=== PATIENT | female | born 1950 | race Caucasian/White ===

== ENCOUNTER → 2021-06-17 09:44 | Outpatient (CLI) | payer MEDICARE, BC, SELFPAY ==
--- NOTE | 2021-06-17 09:48 | MM_ITS ---
PROCEDURE INFORMATION: Exam: MG Screening 3D Mammography Exam date and time: 06/17/2021 9:48 AM Age: 71 years old Clinical indication: Encounter for screening mammogram for malignant neoplasm of breast TECHNIQUE: Imaging protocol: Screening tomosynthesis and 2D mammography including computer-aided detection (CAD) when performed. COMPARISON: No relevant prior studies available. FINDINGS: MAMMOGRAPHY: Breast composition: There are scattered areas of fibroglandular density. Mass: No new suspicious masses. Architectural distortion: No suspicious distortion. Calcifications: No suspicious calcifications. Asymmetric density: None. Skin thickening: None. Axillary adenopathy: None. IMPRESSION: No mammographic evidence of malignancy. Annual screening is recommended unless otherwise clinically indicated. ASSESSMENT: BI-RADS Category 1: Negative
== END ==
PROVIDERS: PCP Family Medicine; Visit Provider Family Medicine
DX: Z12.31 Encounter for screening mammogram for malignant neoplasm of breast (principal)
CPT/HCPCS: 77063; 77067

== ENCOUNTER 2022-06-28 21:55 | Emergency (ER) | payer MEDICARE, BC, SELFPAY ==
[2022-06-28 21:56] VITALS: BP 178/70; PULSE 64; RESP 16; TEMP 36.8; O2SAT 99; BMI 29.7
[2022-06-28 23:58] LABS: Microscopic, Urine URINE MICROSCOPIC (MICROSCOPIC)
[2022-06-28 23:59] LABS: Appearance,Urine CLEAR (Clear); Bilirubin,Urine Negative (Negative); Blood, Urine 3+ (Negative); Color,Urine YELLOW (Yellow); Glucose,Urine (UA) Negative (Negative); Ketones,Urine Negative (Negative); Leukocyte Esterase,Urine TRACE (Negative); Nitrate,Urine Negative (Negative); Protein,Urine Negative (Negative); Specific Gravity, Urine <= 1.005 (1.005-1.030); Urobilinogen,Urine 0.2 EU/dl (0.2)
[2022-06-29 00:02] LABS: Bacteria,Urine Trace /lpf
--- NOTE | 2022-06-29 00:02 | CT_ITS ---
PROCEDURE INFORMATION: Exam: CT Abdomen And Pelvis With Contrast Exam date and time: 06/29/2022 12:18 AM Age: 72 years old Clinical indication: Other: Severe vaginal bleeding TECHNIQUE: Imaging protocol: Computed tomography of the abdomen and pelvis with contrast. Radiation optimization: All CT scans at this facility use at least one of these dose optimization techniques: automated exposure control; mA and/or kV adjustment per patient size (includes targeted exams where dose is matched to clinical indication); or iterative reconstruction. Contrast material: ISOVUE; Contrast volume: 75 ml; Contrast route: IV; COMPARISON: No relevant prior studies available. FINDINGS: Diaphragm: Small hiatal hernia. Liver: Normal. No mass. Gallbladder and bile ducts: Normal. No calcified stones. No ductal dilation. Pancreas: Normal. No ductal dilation. Spleen: Normal. No splenomegaly. Adrenal glands: Normal. No mass. Kidneys and ureters: Normal. No hydronephrosis. Stomach and bowel: Unremarkable. No obstruction. No mucosal thickening. Appendix: No evidence of appendicitis. Intraperitoneal space: Unremarkable. No free air. No significant fluid collection. Vasculature: Unremarkable. No abdominal aortic aneurysm. Lymph nodes: Unremarkable. No enlarged lymph nodes. Urinary bladder: Unremarkable as visualized. Reproductive: There is fluid in the endometrial canal. There is enhancement of the endometrial lining. No fibroids are seen. Bones/joints: Unremarkable. No acute fracture. Soft tissues: Unremarkable. IMPRESSION: Fluid in the endometrial canal with enhancement of the endometrial lining. These findings could indicate malignancy. Recommend endometrial biopsy.
[2022-06-29 00:12] LABS: Basophils # 0.1 K/mm3 (0-0.2); Basophils % 0.7 % (0.1-2.0); Eosinophils # 0.1 K/mm3 (0.0-0.4); Eosinophils % 1.1 % (0.1-12.0); Hematocrit 45.3 % (37.0-47.0); Hemoglobin 14.4 g/dL (12.2-16.2); Lymphocytes # 1.9 K/mm3 (0.7-4.5); Lymphocytes % 29.5 % (10-50); Mean Corpuscular HGB Conc 31.8 g/dL (31.8-35.4); Mean Corpuscular Hemoglobin 30.7 pg (27.0-31.2); Mean Corpuscular Volume 96.7 fl (81-99); Mean Platelet Volume 11.4 fl (7.4-10.4); Monocytes # 0.4 K/mm3 (0.1-1.0); Monocytes % 6.2 % (1.7-9.3); Neutrophils # 4.1 K/mm3 (1.8-7.8); Neutrophils % 62.5 % (37.0-80.0); Platelet Count 219 K/mm3 (142-424); Red Blood Count 4.68 M/mm3 (4.20-5.40); Red Cell Distribution Width 13.4 % (11.5-17.5); White Blood Count 6.6 K/mm3 (4.8-10.8)
[2022-06-29 00:17] LABS: Anion Gap 13.2 mEq/L (5-15); Blood Urea Nitrogen 13 mg/dl (7-17); Calcium 9.9 mg/dl (8.4-10.2); Carbon Dioxide 29 mmol/L (22.0-30.0); Chloride 104 mmol/L (98-107); Creatinine Clearance Estimated 63 mL/min (50-200); Estimated Glomerular Filt Rate 71 ml/min (>60); GFR (African American) 86 ML/MIN (>60); Glucose 120 mg/dl (74-100); Potassium 4.2 mmoL/L (3.5-5.1); Sodium 142 mmol/L (136-145)
--- NOTE | 2022-06-29 00:26 | PC.NURSE ---
Pt gone to RAD
--- NOTE | 2022-06-29 00:38 | PC.NURSE ---
Pt back from RAD
--- NOTE | 2022-06-29 00:44 | PC.NURSE ---
Pt updated on POC. No needs voiced at this time.
--- NOTE | 2022-06-29 01:56 | HMH.EDUROGF ---
ED Disposition Clinical Impression: Dysfunctional uterine bleeding Disposition: Home, Self-Care Condition on Discharge: Good Instructions: DI for Vaginal Bleeding Additional Instructions: call outdoor studies director in am Referrals: Carmelo Hammond MD [Primary Care Provider] - Arya Hsieh MD [Staff Physician] - Suha Hurt DO [Physician] - Madhavi Meade MD [Staff Physician] - - Critical Care Critical Care Time: No Attestation: On 06/28/22, the high probability of a clinically significant, sudden or life threatening deterioration of the following system(s) required my full and direct attention, intervention and personal management. The time I documented below is in addition to time spent performing reported procedures but includes the following listed in this critical care notation. Medical Decision Making - Medical Records Medical records reviewed: Yes: I reviewed the patient's medical records. - Kehinde Inquiry Pt receiving controlled substance: No Vital Signs: 06/28/22 21:56 Temperature 98.2 F Temperature Source Oral Pulse Rate [Left] 64 Respiratory Rate 16 Blood Pressure [Right Arm] 178/70 H Blood Pressure Mean [Right Arm] 106 02 Sat by Pulse Oximetry 99 Oxygen Delivery Method Room Air - Lab Data Lab results reviewed: Yes: I reviewed the patient's lab results. Lab Results 06/28/22 23:15: Urine Color Yellow, Urine Appearance Clear, Urine pH 6.0, Ur Specific [place] <= 1.005, Urine Protein Negative, Urine Glucose (UA) Negative, Urine Ketones Negative, Urine Blood 3+, Urine Nitrate Negative, Urine Bilirubin Negative, Urine Urobilinogen 0.2, Ur Leukocyte Esterase Trace, Urine RBC 10-20, Urine WBC 3-5, Ur Squamous Epith Cells 3-5, Urine Bacteria Trace 06/28/22 23:30: WBC 6.6, RBC 4.68, Hgb 14.4, Hct 45.3, MCV 96.7, MCH 30.7, MCHC 31.8, RDW 13.4, Plt Count 219, MPV 11.4 H, Neut % (Auto) 62.5, Lymph % (Auto) 29.5, [place] % (Auto) 6.2, Eos % (Auto) 1.1, Baso % (Auto) 0.7, Neut # (Auto) 4.1, Lymph # (Auto) 1.9, [place] # (Auto) 0.4, Eos # (Auto) 0.1, Baso # (Auto) 0.1 06/28/22 23:30: Sodium 142, Potassium 4.2, Chloride 104, Carbon Dioxide 29, Anion Gap 13.2, BUN 13, Creatinine 0.80, Estimated Creat Clear 63, Estimated GFR 71, Est GFR ( Amer) 86, Glucose 120 H, Calcium 9.9 Result diagrams: 06/28/22 23:30 06/28/22 23:30 Orders (Tests/Meds): ED MEDICATIONS Discontinued Medications Generic Name Dose Route Start Last Admin Trade Name Branden PRN Reason Stop Dose Admin Iopamidol 75 ml 06/29/22 00:36 06/29/22 00:37 Iopamidol-370 (76%);100ml Bottle IV 06/29/22 00:37 75 ml ONCE ONE Administration Sodium Chloride 10 ml 06/29/22 00:36 06/29/22 00:37 Sodium Chloride 0.9% 10ml Syr (Rad Only) IV 06/29/22 00:37 10 ml ONCE ONE Administration - CT Data CT Scan: Abdomen, Pelvis Time Received: 01:[address] Reviewed: Yes: I have viewed the radiologist's interpretation Preliminary Findings: Abnormal Medical Decision Narrative: stable exam and will refer to outdoor studies director Female Urogenital HPI - General Chief complaint: Vaginal Bleeding Stated complaint: vag bleeding Time Seen by Provider: 06/29/22 01:56 Mode of Arrival: Ambulatory Source of Information: Patient, Spouse, Medical Record Limitations: No Limitations Description of Symptoms (Recalled from ER Triage Doc. by RN): pt reports that at 8pm she was at [employer] and stood up and had a [place] of blood she was passing small clots and she hasnt had any bleeding in 20 years pt stated she does have a uterus. there was cramping but no trauma or hx of bleeding - History of Present Illness HPI Narrative: crampy lower abd pain with assoc vag bleeding MD Complaint: vaginal bleeding Onset (ago): hour(s) Severity: moderate Quality: cramping : No Associated symptoms: denies other symptoms - Related Data Home Medications Medication Instructions Recorded Confirmed Calcium Carb, Citrate/Vit D3 600 units PO DAILY 06/14/18 06/14/18 [Calci
[2022-06-29 02:05] VITALS: BP 170/68; PULSE 65; RESP 18; TEMP 36.8; O2SAT 98
== END 2022-06-29 02:07 | disposition home or self-care (01) ==
PROVIDERS: Emergency Provider Emergency Medicine; PCP Family Medicine
DX: N93.8 Other specified abnormal uterine and vaginal bleeding (principal)
CPT/HCPCS: 74177; 80048; 81001; 85025; 99284; Q9967

== ENCOUNTER → 2022-07-03 10:39 | Outpatient (CLI) | payer MEDICARE, BC, SELFPAY ==
--- NOTE | 2022-07-03 10:50 | US_ITS ---
FINAL REPORT CLINICAL HISTORY: post menopausal bleeding: very thickened endometrium,1.5 cm, with vascularity in post-menopausal patient FINDINGS: Transvaginal sonographic images of the pelvis were obtained. The uterus measures 5.6 x 3.5 x 5.0 cm. The endometrium is abnormally thickened at 15 mm, neoplasm is not excluded. The right ovary measures 2 cm. The left ovary is not seen consistent with prior surgical removal. There is no evidence of free fluid. IMPRESSION: Abnormally thickened endometrium, neoplasm is not excluded. Reviewed, Interpreted and Dictated by Ronni Cho III, MD Transcribed by Valarie Henao Authenticated and . [facility]
== END ==
PROVIDERS: PCP Family Medicine; Visit Provider Obstetrics & Gynecology
DX: N95.0 Postmenopausal bleeding (principal)
CPT/HCPCS: 76830

== ENCOUNTER → 2022-08-04 08:31 | Outpatient (CLI) | payer MEDICARE, BC, SELFPAY ==
[2022-08-04 09:25] LABS: Basophils % 0.9 % (0.1-2.0); Eosinophils # 0.1 K/mm3 (0.0-0.4); Eosinophils % 1.9 % (0.1-12.0); Hematocrit 44.1 % (37.0-47.0); Hemoglobin 13.8 g/dL (12.2-16.2); Lymphocytes % 40.6 % (10-50); Mean Corpuscular HGB Conc 31.2 g/dL (31.8-35.4); Mean Corpuscular Hemoglobin 30.1 pg (27.0-31.2); Mean Corpuscular Volume 96.4 fl (81-99); Mean Platelet Volume 12.1 fl (7.4-10.4); Monocytes # 0.3 K/mm3 (0.1-1.0); Monocytes % 6.1 % (1.7-9.3); Neutrophils # 2.5 K/mm3 (1.8-7.8); Neutrophils % 50.5 % (37.0-80.0); Platelet Count 168 K/mm3 (142-424); Red Blood Count 4.57 M/mm3 (4.20-5.40); Red Cell Distribution Width 13.4 % (11.5-17.5); White Blood Count 4.9 K/mm3 (4.8-10.8)
[2022-08-04 09:43] LABS: Alanine Aminotransferase 12 U/L (12-78); Albumin/Globulin Ratio 1.4 (1.1-1.8); Alkaline Phosphatase 76 U/L (38-126); Anion Gap 13.4 mEq/L (5-15); Aspartate Amino Transferase 25 U/L (14-36); Bilirubin,Total 0.2 mg/dl (0.2-1.3); Blood Urea Nitrogen 12 mg/dl (7-17); Calcium 9.5 mg/dl (8.4-10.2); Carbon Dioxide 29 mmol/L (22.0-30.0); Chloride 101 mmol/L (98-107); Estimated Glomerular Filt Rate 71 ml/min (>60); GFR (African American) 86 ML/MIN (>60); Globulin 2.9 g/dL (1.3-3.2); Glucose 97 mg/dl (74-100); Potassium 4.4 mmoL/L (3.5-5.1); Sodium 139 mmol/L (136-145); Total Protein,Serum 6.9 g/dl (6.3-8.2)
== END ==
PROVIDERS: PCP Family Medicine; Visit Provider Obstetrics & Gynecology
DX: Z01.812 Encounter for preprocedural laboratory examination; Z20.822 Contact with and (suspected) exposure to COVID-19; N95.0 Postmenopausal bleeding
CPT/HCPCS: 36415; 80053; 85025; C9803; U0003; U0005

== ENCOUNTER 2022-08-06 07:16 | Day surgery (SDC) | payer MEDICARE, BC, SELFPAY ==
[2022-08-03 13:38] VITALS: BMI 28.8
[2022-08-06] VITALS (10 sets, daily range): BP systolic 124–156; BP diastolic 60–81; PULSE 66–93; RESP 12–18; TEMP 36.1–36.6; O2SAT 96–99
--- NOTE | 2022-08-06 10:48 | EXP.OP.NOTE ---
Date of procedure: 08/06/22 Pre-op Diagnosis:: 1. Postmenopausal bleeding 2. Thickened endometrium Post-op Diagnosis:: 1. Postmenopausal bleeding 2. Thickened endometrium 3. Vulvar Lichen sclerosis Procedure performed:: 1. Hysteroscopy, dilation and curettage with Myosure Surgeon:: Suha Hurt DO Supervisor Agricultural Education(s):: n/a Anesthesia: GETA Estimated blood loss (mL): 0 Clinical Note:: Mrs Marybeth Cole is a very pleasant 72 yo female, [id number], who presents for preop visit. She had a gush of vaginal bleeding 06/28/22, at religious. She had a second gush of blood at home after religious. On 06/29/22, she passed some clots. 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 She admits to intermittent small amounts of bleeding since that episode. She admits to feeling a little pelvic discomfort on 06/28/22 but nothing since. She went through menopause ~ age 52. Patient states her PCP checked TSH and it is elevated. CT scan on 06/29 demonstrated fluid in the endometrial canal, enhancement of the endometrial lining.? No fibroids are seen. Pelvic ultrasound 07/03/22 demonstrated endometrium abnormally thickened at 15 mm, neoplasm is not excluded.? The right ovary measures 2 cm.? The left ovary is not seen consistent with prior surgical removal.? There is no evidence of free fluid. Operative findings:: On bimanul exam, uterus was midline and anterverted. No adnexal masses palpated. Cervical stenosis present. Large amount of fluffy white tissue with calcifications within the endometrial cavity. Bilateral tubal ostia easily visualized after Myosure curettage to remove fluffy tissue within the cavity. Remainder of endometrial tissue was pale and atrophic. Operative note:: Risks, benefits and alternatives were discussed with the patient. Risks include but are not limited to bleeding, infection, uterine perforation and VTE. Patient voiced understanding and agreed to proceed. She was wheeled back to the operating room and placed under general anesthesia without difficulty. She was placed in dorsal lithotomy position. Vulvar lichen sclerosis was noted around introitus with well demarcated, white wrinkled plaque with scarring and loss of vulvar architecture around the introitus. She was prepped and draped in the normal sterile fashion. Straight catheter was used to drain the bladder. A bimanual exam was performed. A Belen retractor was placed in the vaginal vault. Single tooth tenaculum was placed on anterior lip of the cervix. Uterus sounded to 8. Sequential Slade dilators were used to dilate the cervical os. Hysteroscope was inserted through the cervix without difficulty. Endometrial cavity was evaluated. See findings above. Pictures were taken. Myosure was inserted through the hysteroscope. Myosure curettage was performed per protocol to remove white fluffy tissue within the cavity and then rotated in a 360 degree fashion under direct visualization to sample rest of endometrium. A moderate amount of tissue was obtained. Pictures were taken. Hysteroscope with Myosure was removed. Instruments were removed from the vagina. Tenaculum site was hemostatic Patient was awaken from anesthesia without difficulty. She was transported to recovery room in stable condition. Patient will be discharged home when awake and ambulating. She was given postop instructions as well as instructions to follow-up in the office on 08/20/22 at 1330. Condition: stable Disposition: same day Specimens:: Endometrial curettings Complications:: None
--- NOTE | 2022-08-06 11:13 | SUR.PHASEI ---
[id number] called and gave detailed report to Daren Recio RN [id number] transported via stretcher to post op. vital signs stable. left in stable condition with Daren Recio RN
--- NOTE | 2022-08-06 14:30 | EXP.ANES.CKL ---
[facility] Medical History History of kidney stones Hypercholesteremia Postmenopausal bleeding Thickened endometrium Surgical History H/O tubal ligation History of colonoscopy History of oophorectomy Hx of removal of ovary Family History Other No significant family history Social History Smoking Status: Never smoker alcohol intake: never substance use type: denies use current occupational status: retired Travel in the last 8 weeks: None [facility] Anesthesia Checklist Patient Identification Patient Identification: Arm Band Structural Data Admitted From: Direct Admit Planned Operative Procedure/s: D and C, Hysteroscopy Consent for Planned Operative Procedure(s) Verified: Yes Verified Documents: Surgical Consent NPO Status Verified Time NPO: 00:00 (0000) Additional verifications Anesthesia Reactions: No Hx Blood Transfusions: No Cardiovascular Assessment Heart Sounds: S1 & S2 Airway Assessment C-Spine Mobility Assessed: Yes TMJ Mobility Assessed: Yes Neurological Assessment Level of Consciousness: Awake, Alert, Appropriate and Follows Commands Hx Seizures: No Numbness or tingling in extremities: No Anesthesia Plan Anesthesia Risk discussed: Yes Anesthesia Plan: Verified ASA Class: II Anesthesia Type: General
--- NOTE | 2022-08-06 14:34 | EXP.ANES.I ---
[facility] Anesthesia Record Part I Anesthesia Record I Intake, IV Amount: 200 Estimated blood loss (mL): 0 Urine output (mL): 0 Blood Products used (#): none Blood Pressure: 129/60 SaO2: 96 Pulse Rate: 93 Respiratory Rate: 16 Temperature: 97.1 F Patient is:: Drowsy and Stable
[2022-08-07 09:05] VITALS: BP 133/62; PULSE 71; TEMP 36.1
--- NOTE | 2022-08-07 09:05 | EXP.ANES.II ---
[facility] Anesthesia Record Part II Anesthesia Record Part II Discharge Time: 11:10 Destination: Surgical Day Care (OP Surgery) PACU nurse assessment reviewed?: Yes Patient Condition:: Good Anesthesia Complications:: None Swallowing reflex intact?: Yes Cyanosis?: No Blood Pressure: 133/62 Pulse Rate: 71 Temperature: 97 F Mental Status: Alert & Oriented Pain level:: 0 Nausea and/or vomitting:: None Intake, IV Amount: 0
== END 2022-08-06 11:55 | disposition home or self-care (01) ==
PROVIDERS: PCP Family Medicine; Visit Provider Obstetrics & Gynecology
DX: R93.89 Abnormal findings on diagnostic imaging of other specified body structures; N90.4 Leukoplakia of vulva; C54.1 Malignant neoplasm of endometrium; N95.0 Postmenopausal bleeding; Z79.899 Other long term (current) drug therapy
CPT/HCPCS: 58558; 88305; J2405

== ENCOUNTER → 2022-09-25 09:57 | Outpatient (CLI) | payer MEDICARE, BC, SELFPAY | PROVIDERS: PCP Family Medicine; Visit Provider Nurse Practitioner Family | DX: U07.1 COVID-19 (principal) | CPT/HCPCS: C9803; U0003; U0005 ==

== ENCOUNTER 2025-04-01 17:57 | Emergency (ER) | payer MEDICARE, BC, SELFPAY ==
[2025-04-01 18:06] VITALS: BP 180/74; PULSE 56; O2SAT 93
[2025-04-01 18:06] LABS: Microscopic, Urine URINE MICROSCOPIC (MICROSCOPIC)
[2025-04-01 18:07] VITALS: BP 180/74; PULSE 71; RESP 15; TEMP 36.6; O2SAT 98; BMI 27.4
[2025-04-01 18:10] LABS: Appearance,Urine CLEAR (Clear); Bilirubin,Urine Negative (Negative); Blood, Urine 3+ (Negative); Color,Urine YELLOW (Yellow); Glucose,Urine (UA) Negative (Negative); Ketones,Urine Negative (Negative); Leukocyte Esterase,Urine Negative (Negative); Nitrate,Urine Negative (Negative); Protein,Urine Negative (Negative); Specific Gravity, Urine 1.015 (1.005-1.030); Urobilinogen,Urine 0.2 EU/dl (0.2)
--- NOTE | 2025-04-01 18:12 | CT_ITS ---
PROCEDURE INFORMATION: Exam: CT Abdomen And Pelvis Without Contrast Exam date and time: 04/01/2025 6:22 PM Age: 75 years old Clinical indication: Other: L flank pain, hematuria, h/o stones; Abdominal pain; Left TECHNIQUE: Imaging protocol: Computed tomography of the abdomen and pelvis without contrast. Radiation optimization: All CT scans at this facility use at least one of these dose optimization techniques: automated exposure control; mA and/or kV adjustment per patient size (includes targeted exams where dose is matched to clinical indication); or iterative reconstruction. COMPARISON: CT ABDOMEN PELVIS W CON 06/29/2022 12:18 AM FINDINGS: Lungs: Left basilar benign calcified pulmonary nodule. Liver: Normal. No mass. Gallbladder and biliary ducts: Normal. No calcified stones. No ductal dilation. Pancreas: Normal. No ductal dilation. Spleen: Normal. No splenomegaly. Adrenal glands: Normal. No mass. Kidneys and ureters: 0.4 cm left ureterovesicular junction calculus with proximal hydroureter. Stomach and bowel: Nonobstructive pattern. Appendix: No evidence of appendicitis. Intraperitoneal space: Unremarkable. No free air. No significant fluid collection. Vasculature: Unremarkable. No abdominal aortic aneurysm. Lymph nodes: Unremarkable. No enlarged lymph nodes. Urinary bladder: Unremarkable as visualized. Reproductive: Unremarkable as visualized. Bones/joints: Unremarkable. No acute fracture. Soft tissues: Unremarkable. IMPRESSION: Left ureterovesicular junction calculus with proximal hydroureter.
[2025-04-01 18:17] LABS: Basophils % 0.4 % (0.1-2.0); Eosinophils # 0.1 Kmm3 (0.0-0.4); Eosinophils % 1.1 % (0.1-12.0); Hematocrit 41.7 % (37.0-47.0); Hemoglobin 13.9 g/dL (12.2-16.2); Immature Granulocytes # 0.01 10^3uL; Immature Granulocytes % 0.2 %; Lymphocytes # 2.3 K/mm3 (0.7-4.5); Lymphocytes % 40.5 % (10-50); Mean Corpuscular HGB Conc 33.3 g/dL (31.8-35.4); Mean Corpuscular Hemoglobin 30.7 pg (27.0-31.2); Mean Corpuscular Volume 92.1 fl (81-99); Monocytes # 0.4 K/mm3 (0.1-1.0); Monocytes % 7.6 % (1.7-9.3); Neutrophils # 2.8 K/mm3 (1.8-7.8); Neutrophils % 50.2 % (37.0-80.0); Nucleated Red Blood Cells # 0 10^3/uL; Nucleated Red Blood Cells % 0 %; Platelet Count 175 K/mm3 (142-424); Red Blood Count 4.53 M/mm3 (4.20-5.40); Red Cell Distribution Width 12.8 % (11.5-17.5); Red Cell Distribution Width-SD 43.6 fL; White Blood Count 5.6 K/mm3 (4.8-10.8)
[2025-04-01] MEDS: ONDANSETRON 4MG/2ML VIAL 4 MG IV (18:18)
[2025-04-01] MEDS: ACETAMINOPHEN 500MG TAB 1000 MG PO (18:18)
[2025-04-01] MEDS: MORPHINE 4MG/ML SYRINGE 4 MG IV (18:18)
--- NOTE | 2025-04-01 18:18 | PC.NURSE ---
pt gone to radiology via wheelchair
[2025-04-01 18:19] LABS: Bacteria,Urine Trace /lpf; RBC,Urine 50-100 #/hpf (0-3)
[2025-04-01 18:20] LABS: Chloride 105 mmol/L (98-107)
[2025-04-01 18:21] LABS: Albumin Level 4.6 g/dl (3.5-5.0); Potassium 3.9 mmoL/L (3.5-5.1); Sodium 135 mmol/L (136-145)
[2025-04-01 18:23] LABS: Anion Gap 9.9 mEq/L (5-15); Blood Urea Nitrogen 16 mg/dl (7-17); Carbon Dioxide 24 mmol/L (22.0-30.0); Creatinine Clearance Estimated 49 mL/min (50-200); Estimated Glomerular Filt Rate 49 ml/min (>60); GFR (African American) 59 ML/MIN (>60)
--- NOTE | 2025-04-01 18:23 | ED_ITS ---
Discharge Plan Disposition Patient Disposition: Home, Self-Care Prescriptions Prescriptions: New ketorolac 10 mg tablet 10 mg PO Q8H PRN (Reason: pain) 5 Days Qty: 15 0RF tamsulosin 0.4 mg capsule 0.4 mg PO DAILY Qty: 7 0RF ondansetron 4 mg tablet,disintegrating 4 mg PO Q6H PRN (Reason: nausea and vomiting) Qty: 10 0RF oxycodone 5 mg tablet 5 mg PO Q6H PRN (Reason: pain) Qty: 10 0RF No Action clobetasol 0.05 % ointment 1 applic topical HS Qty: 30 1RF rosuvastatin 10 MG tablet 10 mg PO DAILY calcium carb, citrate-vit D3 1 EACH tablet extended release 600 units PO DAILY Referrals Follow up/Referrals: Carmelo Hammond MD [Primary Care Provider] - See instructions Activity Restrictions/Add. Instructions Additional Instructions/Restrictions: Call your family doctor to establish care for this visit to the emergency department and schedule follow-up within 48 hours to ensure improvement. If you have any worsening of your condition or any other concerning signs or symptoms, return to the emergency department or your primary care doctor for further evaluation. You were evaluated in the emergency department today. You were diagnosed with a kidney stone. Follow-up closely with urology. We do not have an interventional urologist at our healthcare facility, but one close option is Dr. Charlie Perez in [place] ([facility] - [address], [address], [place] [address] - [phone]). Please make sure you drink plenty of fluids and stay orally hydrated. Toradol is an NSAID like ibuprofen and aleve, so do not take other NSAIDs while taking this medication. Try getting by with toradol and Tylenol, but you may choose to take the narcotic pain medication provided to you in the event of severe pain not controlled by these medications. Do not drive or operate heavy machinery while taking narcotic pain medication, as it can be sedating. Narcotic pain medication can be addicting and can cause constipation. Follow-up closely with your primary care provider as well. Return to the emergency department for new or worsening symptoms such as significant worsening in pain, fever greater than 100.4 ?F, intractable nausea and vomiting. Clinical Impressions Clinical Impression: Calcium ureterolithiasis Instructions Patient Instructions: DI for Urinary Tract Infection (UTI), DI for Urinary Tract Infection in Children Print Language Print Language: Slovenian Discharge ED Provider: Addison Mendoza General Adult HPI General Chief complaint: Urogenital-Female Stated complaint: Pain lower left back,left side waist line area Time Seen by Provider: 04/01/25 18:05 Mode of Arrival: Ambulatory Source of Information: Patient Description of Symptoms (Recalled from ER Triage Doc. by RN): patient states she has been having left side flank pain that began 2 hours ago. sharp stabbing 10/10 pain. hx of kidney stones History of Present Illness HPI narrative: Please note that above description of symptoms, in this electronic medical record under categorization of recalled from ER triage doctor by RN are reflective of an initial nursing assessment, however, is not reflective of my full history and physical exam that was personally taken and clarified. Consequentially, this preceding description of symptoms, which may include the patient's categorized chief complaint in the EMR, do not reflect my personal clinical impression, and the ultimate description of history of present illness and patient stated complaints should be deferred to this section of the note. Unless stated otherwise or congruent with this section of the note, additional signs, symptoms, or incongruence should be interpreted as inaccurate with my clinical impression. Related Data Home Medications ?Medication ?Instructions ?Recorded ?Confirmed calcium ER 600 mg (as carb,cit)-D3 600 units PO DAILY Supplement 06/14/18 04/27/23 12.5 mcg (500 unit) tablet, ext.rel rosuvastatin 10 mg tablet 10 mg PO DAILY Cholesterol 06/14/18 04/27/23 Previous Rx's ?Medication ?Instructions ?Recorded clobetasol 0.05 % topical ointment 1 applic topical HS #30 grams 03/23/23 ketorolac 10 mg tablet 10 mg PO Q8H PRN pain 5 days #15 04/01/25 tabs ondansetron 4 mg disintegrating 4 mg PO Q6H PRN nausea and 04/01/25 tablet vomiting #10 tabs oxycodone 5 mg tablet 5 mg PO Q6H PRN pain #10 tabs 04/01/25 tamsulosin 0.4 mg capsule 0.4 mg PO DAILY #7 caps 04/01/25 Allergies Allergy/AdvReac Type Severity Reaction Status Date / Time ibuprofen Allergy Mild Verified 04/27/23 10:19 PFSH PFSH Disclaimer: The information contained in this section may have been updated after the patient was seen, as this information can be updated by other users. Medical History Endometrial adenocarcinoma History of kidney stones Hypercholesteremia Lichen planus Postmenopausal bleeding Thickened endometrium Surgical History H/O tubal ligation History of colonoscopy History of hysteroscopy 10/2022 History of oophorectomy Hx of removal of ovary Family History Other No significant family history Social History Smoking Status: Never smoker alcohol intake: never substance use type: denies use current occupational status: retired Travel in the last 8 weeks?: None Have you lived/traveled outside [place] in past 30 days?: No Contact w/someone who lives/traveled outside US past 30 days?: No Exposure to someone with infectious disease in past 14 days?: No Do you have a fever (greater than 100.4 F or 38 C)?: No Have you tested positive for COVID-19?: No Exposed to someone with COVID-19 in past 14 days?: No Do you have a sore throat?: No Do you have a cough?: No Do you have any weakness?: No Do you have any diarrhea?: No Are you experiencing any unusual bleeding?: No Do you have any muscle aches/pain?: No Do you have any abdominal pain?: No Are you experiencing loss of taste or smell?: No Other Medical History Have you received the Flu Vaccine for this season: No Have you received the Pneumonia Vaccine: Yes ROS Obtained: Yes All systems reviewed & no additional complaints except as documented Physical Exam General General appearance: alert Head Head exam: atraumatic and normocephalic Eye Eye exam: Present normal appearance, PERRL and EOMI Neck Neck exam: Present normal inspection, full ROM and trachea midline Respiratory Respiratory exam: Absent respiratory distress, wheezes, stridor, accessory muscle use or prolonged expiratory phase Cardiovascular Cardiovascular exam: Present other (Pulses equal symmetric in upper and lower extremities) Abdominal Exam Abdominal exam: Present soft; Absent distention, tenderness or pulsatile mass Extremities Exam Extremities exam: Absent edema Neurological Exam Neurological exam: Present alert, oriented X3 and CN II-XII intact; Absent motor sensory deficit Skin Skin exam: Present warm and dry; Absent diaphoresis or erythema Medical Decision Making Medical Records Medical records reviewed: Yes I reviewed the patient's medical records. Screening: Per USPSTF and CDC recommendations, given the prevalence of disease in our region, it is our hospital?s policy to screen for HIV and viral Hepatitis for all patients aged 18 and over and those with ongoing risk factors. Kehinde Inquiry Pt receiving controlled substance: No Kehinde was queried for this patient: No Vital Signs: 04/01/25 18:06 04/01/25 18:07 04/01/25 18:30 Temperature 97.8 F Temperature Source Oral Pulse Rate 56 L 65 Pulse Rate [Right Radial] 71 Respiratory Rate 15 Blood Pressure 180/74 H 178/87 H Blood Pressure [Right Arm] 180/74 H Blood Pressure Mean [Right Arm] 109 Blood Pressure Source [Right Arm] Automatic Cuff Blood Pressure Position [Right Arm] Sitting 02 Sat by Pulse Oximetry 93 L 98 99 Oxygen Delivery Method Room Air 04/01/25 19:00 04/01/25 19:30 Temperature Temperature Source Pulse Rate 66 51 L Pulse Rate [Right Radial] Respiratory Rate Blood Pressure 167/83 H 147/70 H Blood Pressure [Right Arm] Blood Pressure Mean [Right Arm] Blood Pressure Source [Right Arm] Blood Pressure Position [Right Arm] 02 Sat by Pulse Oximetry 100 100 Oxygen Delivery Method Lab Data Lab Results 04/01/25 18:01: Urine Color Yellow, Urine Appearance Clear, Urine pH 8.0, Ur Specific [place] 1.015, Urine Protein Negative, Urine Glucose (UA) Negative, Urine Ketones Negative, Urine Blood 3+ A, Urine Nitrate Negative, Urine Bilirubin Negative, Urine Urobilinogen 0.2, Ur Leukocyte Esterase Negative, Urine RBC 50-100, Urine WBC 3-5, Ur Squamous Epith Cells None, Urine Bacteria Trace 04/01/25 18:09: WBC 5.6, RBC 4.53, Hgb 13.9, Hct 41.7, MCV 92.1, MCH 30.7, MCHC 33.3, RDW 12.8, Plt Count 175, MPV 13.0 H, Neut % (Auto) 50.2, Lymph % (Auto) 40.5, [place] % (Auto) 7.6, Eos % (Auto) 1.1, Baso % (Auto) 0.4, Neut # (Auto) 2.8, Lymph # (Auto) 2.3, [place] # (Auto) 0.4, Eos # (Auto) 0.1, Baso # (Auto) 0.0, S odium 135 L, Potassium 3.9, Chloride 105, Carbon Dioxide 24, Anion Gap 9.9, BUN 16, Creatinine 1.10 H, Estimated Creat Clear 49, Estimated GFR 49 L, Est GFR ( Amer) 59, Glucose 115 H, Calcium 9.5, Total Bilirubin 0.4, AST 27, ALT 15, Alkaline Phosphatase 65, Total Protein 7.3, Albumin 4.6, Globulin 2.7, Albumin/Globulin Ratio 1.7, HCV Ab YARI w/Rflx PCR Qn Negative, HIV Ag/Ab Combo Qual Negative 04/01/25 18:09 04/01/25 18:09 Orders (Tests/Meds): ED MEDICATIONS Discontinued Medications Generic Name Dose Route Start Last Admin Trade Name Erickq PRN Reason Stop Dose Admin Acetaminophen 1,000 mg 04/01/25 18:11 04/01/25 18:18 Acetaminophen 500mg Tab PO 04/01/25 18:12 1,000 mg ONCE ONE Administration Ketorolac Tromethamine 15 mg 04/01/25 19:02 04/01/25 19:09 Ketorolac 30mg/Ml Vial IV 04/01/25 19:03 15 mg ONCE ONE Administration Morphine Sulfate 4 mg 04/01/25 18:11 04/01/25 18:18 Morphine 4mg/Ml Syringe IV 04/01/25 18:12 4 mg ONCE ONE Administration Ondansetron HCl 4 mg 04/01/25 18:11 04/01/25 18:18 Ondansetron 4mg/2ml Vial IV 04/01/25 18:12 4 mg ONCE ONE Administration Tamsulosin HCl 0.4 mg 04/01/25 19:03 04/01/25 19:09 Tamsulosin 0.4mg Capsule PO 04/01/25 19:04 0.4 mg ONCE ONE Administration ORDERS Category Date Time Status CT abdomen pelvis wo con Stat Cat Scan 04/01/25 18:12 Taken CBC w/Auto Diff [Complete Blood Count Auto Diff] Stat Lab 04/01/25 18:09 Completed CMP [Comprehensive Metabolic Panel] Stat Lab 04/01/25 18:09 Completed HIV Combo Stat Lab 04/01/25 18:09 Completed Hepatitis C Ab Qual. W/ RFX Stat Lab 04/01/25 18:09 Completed UA [Urinalysis and Microscopic] Stat Lab 04/01/25 18:01 Completed Medical Decision Narrative: 75-year-old female history of hyperlipidemia nephrolithiasis presenting with left flank pain. She states that it flared up a few days ago, but was intermittent since that time. About 2 hours prior to this, it was sharp, severe, sudden, left flank that radiates around to her left groin. States his last time she had a kidney stone was over 10 years ago and she needed lithotripsy at [facility]. Prior to this, she took a couple of aspirin that seemed to take the edge off, but still having moderate to severe pain. Associated with hematuria, no fevers or chills or nausea or vomiting. History was obtained via conversation with patient. On arrival, patient hemodynamically stable, alert, [oriented x4, ][appropriate, ]GCS [15], moving all extremities spontaneously, pupils equal and reactive to light. Full physical exam performed and significant for clinically well-appearing female no acute distress. She does have left flank tenderness just inferior to costal margin to percussion no overlying skin changes. Differential includes nephrolithiasis, urinary tract infection, pyelonephritis, less likely to be AAA because lack of risk factors, neurologically intact, mesenteric disease there is no bowel symptoms, no abdominal tenderness, among others. Patient was given morphine, Zofran, acetaminophen. Labs were drawn, CT imaging was ordered. On independent interpretation of hematologic workup nonactionable hematologic labs other than mild MONSE, which is being corrected with p.o. intake. Urinalysis with blood, but no concern for UTI. On independent interpretation of CT patient has 5 mm stone at the left UVJ with mild upstream hydronephrosis. On reevaluation, patient still having mild to moderate pain. Further conversation about ibuprofen allergy reveals that patient just feels anxious when she takes ibuprofen. Because of this, she states that she is more than happy to try the Toradol if it will help her pain. It was administered along with Flomax. Given patient presentation, workup, history, this most likely represents left-sided ureterolithiasis. Because patient has no infection, no systemic signs or symptoms, pain controlled, no concern for acute renal failure, and clinically well, nearly passed stone, appropriate for outpatient management. Reevaluation, Toradol completely relieved patient's pain. Because patient at baseline without signs or symptoms of clinical decompensation, deemed appropriate for discharge. Results were relayed to patient[] who voiced understanding and were agreeable to outpatient management and follow up. I discussed my clinical impression with patient[] and answered all questions. At this time, the evidence for any other entities in the differential is insufficient to warrant any further testing or ED observation. This was explained as well. Advisory was given that persistent or worsening symptoms require further evaluation. I confirmed the understanding of this discussion. Relations Specialist disclaimer Much of this encounter note is an electronic spice miller spoken language to printed text. Electronic spice miller of the spoken language may permit errors. Although I have reviewed the note, some errors may still exist. Critical Care Critical Care Time Critical Care Time: No
[2025-04-01 18:24] LABS: Alanine Aminotransferase 15 U/L (12-78); Albumin/Globulin Ratio 1.7 (1.1-1.8); Alkaline Phosphatase 65 U/L (38-126); Aspartate Amino Transferase 27 U/L (14-36); Bilirubin,Total 0.4 mg/dl (0.2-1.3); Calcium 9.5 mg/dl (8.4-10.2); Globulin 2.7 g/dL (1.3-3.2); Glucose 115 mg/dl (74-100); Total Protein,Serum 7.3 g/dl (6.3-8.2)
[2025-04-01 18:30] VITALS: BP 178/87; PULSE 65; O2SAT 99
[2025-04-01 19:00] VITALS: BP 167/83; PULSE 66; O2SAT 100
[2025-04-01] MEDS: KETOROLAC 30MG/ML VIAL 15 MG IV (19:09)
[2025-04-01] MEDS: TAMSULOSIN 0.4MG CAPSULE 0.4 MG PO (19:09)
--- NOTE | 2025-04-01 19:10 | PC.NURSE ---
pt in restroom at this time.
[2025-04-01 19:12] LABS: HIV Combo NEGATIVE (Negative)
[2025-04-01 19:20] LABS: Hepatitis C Ab Qual. W/ RFX NEGATIVE (Negative)
[2025-04-01 19:30] VITALS: BP 147/70; PULSE 51; O2SAT 100
[2025-04-01 20:13] VITALS: BP 142/66; PULSE 58; RESP 16; TEMP 36.7; O2SAT 97
== END 2025-04-01 20:21 | disposition home or self-care (01) ==
PROVIDERS: Emergency Provider Emergency Medicine; PCP Family Medicine
DX: N13.0 Hydronephrosis with ureteropelvic junction obstruction (principal); N13.4 Hydroureter; R10.32 Left lower quadrant pain; M54.59 Other low back pain; Z11.59 Encounter for screening for other viral diseases; Z11.4 Encounter for screening for human immunodeficiency virus [HIV]
CPT/HCPCS: 74176; 80053; 81001; 85025; 86803; 87389; 96374; 96375; 99285; J1885; J2270; J2405